=== PATIENT | female | born 1935 | race Hispanic/Latino ===

== ENCOUNTER 2020-03-16 19:51 | Emergency (ER) | payer OTHER ==
[~2020-03-16] VITALS: Ht 157.5 cm; Wt 63.5 kg
--- NOTE | 2020-03-16 21:19 | Emergency Department Note ---
History of Present Illnes History of Present Illness Chief Complaint: Respiratory History of Present Illness This is a 84 year old female arrives to the ED with complaints of shor tness of breath for several days. Patient states she feels very anxious. Patient denies any cough, fever or recent travel. . Chief Complaint Comment 84 Y/O FEMALE PT AAOX3 PRESENTS TO ED WITH REPORT OF SOB X2 DAYS; NO SOB NOTED AT THIS TIME, RESP ARE EVEN AND UNLABORED, O2 SAT RA 100%; SKIN WARM, DRY, COLOR WNL FOR PT; ER MD TO TRIAGE FOR INITIAL EVAL Historian: Patient, Family Member Arrival Mode: Car Radiation: Reports non-radiation Severity: mild Duration (how long): day(s) Chronicity: new Past Medical/Family History Physician Review I have reviewed the patient's past medical and family history. Any updates have been documented here. Past Medical History Recent Fever: No Clinical Suspicion of Infectio: No New/Unexplained Change in Ment: No Past Medical History: Hypertension, Diabetes, CHF Past Surgical History: None Social History Smoking Cessation: Never Smoker Counseling Performed: No Alcohol Use: None Any Illegal Drug Use: No Other Any Pre-Existing Lines (PICC,: No Review of Systems Review of Systems Constitutional: Reports no symptoms EENTM: Reports no symptoms Cardiovascular: Reports no symptoms Respiratory: Reports as per HPI, Reports dyspnea Gastrointestinal: Reports no symptoms Genitourinary: Reports no symptoms Musculoskeletal: Reports no symptoms Integumentary: Reports no symptoms Neurological: Reports no symptoms Psychological: Reports no symptoms Endocrine: Reports no symptoms Hematological/Lymphatic: Reports no symptoms Physical Exam Related Data Allergies: Coded Allergies: No Known Allergies (Unverified , 03/16/20) Triage Vital Signs Vital Signs Date Time Temp Pulse Resp B/P (MAP) Pulse Ox O2 Delivery O2 Flow Rate FiO2 03/16/20 20:31 98.1 65 16 115/45 100 Room Air Vital signs reviewed: Yes Physical Exam CONSTITUTIONAL Constitutional: Present well-developed, Present well-nourished HENT HENT: Present normocephalic, Present atraumatic, Present oropharynx clear/moist, Present nose normal HENT L/R: Present left ext ear normal, Present right ext ear normal EYES Eyes: Reports PERRL, Reports conjunctivae normal NECK Neck: Present ROM normal PULMONARY Pulmonary: Present effort normal, Present breath sounds normal CARDIOVASCULAR Cardiovascular: Present regular rhythm, Present heart sounds normal, Present capillary refill normal, Present normal rate GASTROINTESTINAL Abdominal: Present soft, Present nontender, Present bowel sounds normal GENITOURINARY Genitourinary: Present exam deferred SKIN Skin: Present warm, Present dry MUSCULOSKELETAL Musculoskeletal: Present ROM normal NEUROLOGICAL Neurological: Present alert, Present oriented x 3, Present no gross motor or sensory deficits PSYCHOLOGICAL Psychological: Present mood/affect normal, Present judgement normal Results Imaging Imaging results reviewed: Yes Assessment & Plan Medical Decision Making MDM 84-year-old well-appearing female arrives the ED with concerns of fluid over her lungs. Patient with no evidence tachypnea or hypoxia. Chest x-ray shows some mild bronchial cuffing but no concerns of acute pneumonia or fluid overload. Patient stable for discharge home. Patient discharged home of prednisone outpatient pulmonary follow-up given. Assessment & Plan Final Impression: (1) Bronchitis Depart Disposition: HOME, SELF-CARE Last Vital Signs Date Time Temp Pulse Resp B/P (MAP) Pulse Ox O2 Delivery O2 Flow Rate FiO2 03/16/20 20:31 98.1 65 16 115/45 100 Room Air Home Meds Active Scripts Prednisone (PREDNISONE) 20 Mg Tab, 40 MG PO DAILY, #4 TAB Prov:ZAYDA GONZALEZ DO 03/16/20 ZAYDA GONZALEZ DO Mar 16, 2020 21:23
--- NOTE | 2020-03-16 21:52 | Diagnostic Imaging Report ---
EXAMINATION: CHEST SINGLE (PORTABLE) INDICATION: ^SOB X2 DAYS ^[id number] ^[id number] COMPARISON: None FINDINGS: AP view TUBES and LINES: None. LUNGS: Lungs are well inflated. Central peribronchial cuffing. PLEURA: No pleural effusion or pneumothorax. HEART AND MEDIASTINUM: The cardiomediastinal silhouette is unremarkable. BONES AND SOFT TISSUES: No acute osseous lesion. Soft tissues are unremarkable. UPPER ABDOMEN: No free air under the diaphragm. IMPRESSION: Central peribronchial cuffing. No definite focal consolidations. Signed by: Dr. Jet Forbes MD on 03/16/2020 9:49 PM
[2020-03-16 22:23] VITALS: BP 124/59
[2020-03-16] MEDS ORDERED: PREDNISONE20 MG PO (22:23)
== END 2020-03-16 22:32 | disposition home or self-care (01) ==
LOC: ER 20:51
DX: R06.02 Shortness of breath (principal); J40 Bronchitis, not specified as acute or chronic; I10 Essential (primary) hypertension; E11.9 Type 2 diabetes mellitus without complications; I50.9 Heart failure, unspecified
CPT/HCPCS: 71045; 99283